=== PATIENT | male | born 1995 | race Hispanic/Latino ===

== ENCOUNTER 2023-02-09 12:11 | Emergency (ER) | payer OTHER ==
[~2023-02-09] VITALS: Ht 157.5 cm; Wt 50.3 kg
[2023-02-09] MEDS ORDERED: IOHEXOL-350 75 ML VIAL IV ONE (14:37)
[2023-02-09] MEDS ORDERED: IBUP-2070 PO (15:27)
[2023-02-09 15:36] VITALS: BP 116/69; PULSE 86; RESP 16; O2SAT 100
== END 2023-02-09 15:36 | disposition home or self-care (01) ==
LOC: EDBD 12:11 → EDH 12:11
DX: S16.1XXA Strain of muscle, fascia and tendon at neck level, initial encounter (principal); S09.8XXA Other specified injuries of head, initial encounter; S39.81XA Other specified injuries of abdomen, initial encounter; M25.512 Pain in left shoulder; R07.81 Pleurodynia; V89.2XXA Person injured in unspecified motor-vehicle accident, traffic, initial encounter; Y93.I9 Activity, other involving external motion; Y92.488 Other paved roadways as the place of occurrence of the external cause; Y99.8 Other external cause status
CPT/HCPCS: 99285; 70450; 72125; 71260; 74177; Q9967